=== PATIENT | male | born 1940 | race Caucasian/White ===

== ENCOUNTER → 2016-11-03 | Outpatient (CLI) | payer MEDICARE, MEDICAID ==
[~2016-11-03] MED LIST: ACIPHEX20 MG PO; CEPHALEXIN500 M1 PO; CETIRIZINE HYDR10 M1 PO; COLACE 100100 MG/CAP PO; COLACE50 MG PO; COUMADIN 1MG1 MG/TAB PO; COUMADIN 77.5 MG/TAB PO; COUMADIN5 M1 PO; DIGOXIN0.25 MG PO; DOXAZOCIN PO; FERROUS SU325 MG/TAB PO; FLOMAX 0.40.4 MG/CAP PO; FOLIC ACID 40400 MCG PO; LANOXIN 0.25M0.25 MG PO; LASIX 40MG TABL40 MG PO; LISINOPRIL10 MG PO; LOPRESSOR 225 MG/TAB PO; LORTAB 10/500 51 TAB PO; LORTAB 7.5/5001 TAB PO; LYRICA50 MG PO; MIRTAZAPINE7.5 MG PO; NEXIUM 20MG20 MG PO; NITROSTAT0.4 MG/TAB SL; NO HOME MEDICATIONS; NORCO 325 MG-101 TAB PO; NORVASC 5MG5 MG/TAB PO; PREVACID 30MG30 MG PO; SENNA8.6 MG PO; TOPROL XL100 MG PO; VESICARE5 MG PO; VITAMIN B 12 PO; VITAMIN B12 PO; VITAMIN C BUFF500 MG PO; VITAMIN C500 MG PO; WARFARIN SODIUM2 MG PO; ZANAFLEX 4MG TAB4 MG PO; ZOCOR80 MG PO; [UNRECOGNIZED DRUG - OTHER] PO
== END ==
LOC: COL.RAD 08:15
DX: Z13.6 Encounter for screening for cardiovascular disorders (principal)

== ENCOUNTER 2018-01-21 15:18 | Inpatient (IN) | payer MEDICARE, MEDICAID ==
[~2018-01-21] VITALS: Ht 177.8 cm; Wt 65.1 kg
[2018-01-21 16:27] LABS: BASO % 0.2 % (0.0-2.0); EOS % 0.1 % (0-4.0); GRAN # 10.4 (1.4-6.5); GRAN % 86.8 % (42.2-75.2); HEMOGLOBIN 11.8 g/dl (13.5-18.0); LYMPH # 0.6 (1.2-3.4); LYMPH % 5.3 % (20.0-51.0); MEAN CELL VOLUME 90 fl (80.0-100.0); MEAN CORPUSCULAR HEMOGLOBIN 30 pg (27.0-31.0); MEAN CORPUSCULAR HGB CONC 33 g/dl (33.0-37.0); MEAN PLATELET VOLUME 8.7 fl (7.4-10.4); MONO # 0.9 (0.1-0.6); MONO % 7.2 % (1.7-9.3); PLATELET COUNT 244 K/mm3 (130-400); RED BLOOD COUNT 3.95 M/mm3 (4.20-5.60); REDCELL DISTRIBUTION WIDTH-CV 13.3 % (11.5-14.5)
[2018-01-21 16:31] LABS: HEMATOCRIT 35.4 % (42.0-52.0)
[2018-01-21 16:36] LABS: ALBUMIN 3.8 gm/dL (3.5-5.0); BILIRUBIN,TOTAL 0.9 mg/dL (0.0-1.0); CALCIUM 9.3 mg/dL (8.4-10.2); CREATININE, serum 1.24 mg/dL (0.66-1.25); POTASSIUM 3.8 mmol/L (3.4-5.0)
[2018-01-21 16:48] LABS: TROPONIN-I 0.043 ng/mL (0.000-0.034)
[2018-01-21 16:51] LABS: COLLECTION METHOD CLEAN CATCH
[2018-01-21 16:52] LABS: INR 8.5 (0.8-3.0); PROTHROMBIN TIME 96.8 SECONDS (9.7-12.8)
[2018-01-21 17:03] LABS: MUCOUS Present /lpf; PH 5 (5-8); SQUAMOUS EPITHELIAL 0-2 /hpf; URINE APPEARANCE Clear; URINE BACTERIA None Seen /hpf; URINE BILIRUBIN Negative (NEGATIVE); URINE BLOOD Negative (NEGATIVE); URINE COLOR Amber; URINE GLUCOSE Negative (NEGATIVE); URINE KETONE Trace (NEGATIVE); URINE LEUKOCYTE ESTERASE Negative (NEGATIVE); URINE NITRATE Negative (NEGATIVE); URINE PROTEIN(semi-quant) 1+ (NEGATIVE); URINE UROBILINOGEN >=4.0 mg/dL (NEGATIVE)
[2018-01-21] MEDS ORDERED: PRILOSEC 20MG20 MG PO (18:02)
[2018-01-21] MEDS ORDERED: ZANTAC 150150 MG PO (18:05)
[2018-01-21 20:26] VITALS: BP 163/53; PULSE 85; TEMP 98.2
[2018-01-22] VITALS (7 sets, daily range): BP systolic 139–155; BP diastolic 42–59; PULSE 73–86; TEMP 98–99.1
[2018-01-22 07:41] LABS: BASO % 0.2 % (0.0-2.0); GRAN # 10.2 (1.4-6.5); GRAN % 88.6 % (42.2-75.2); HEMOGLOBIN 11.6 g/dl (13.5-18.0); LYMPH # 0.5 (1.2-3.4); LYMPH % 4.3 % (20.0-51.0); MEAN CELL VOLUME 90 fl (80.0-100.0); MEAN CORPUSCULAR HEMOGLOBIN 30 pg (27.0-31.0); MEAN CORPUSCULAR HGB CONC 33 g/dl (33.0-37.0); MEAN PLATELET VOLUME 9.2 fl (7.4-10.4); MONO # 0.7 (0.1-0.6); MONO % 6.3 % (1.7-9.3); PLATELET COUNT 248 K/mm3 (130-400); RED BLOOD COUNT 3.87 M/mm3 (4.20-5.60); REDCELL DISTRIBUTION WIDTH-CV 13.5 % (11.5-14.5)
[2018-01-22 07:46] LABS: INR 1.5 (0.8-3.0); PROTHROMBIN TIME 17.2 SECONDS (9.7-12.8)
[2018-01-22 07:48] LABS: ALBUMIN 3.6 gm/dL (3.5-5.0); BILIRUBIN,TOTAL 0.9 mg/dL (0.0-1.0); CALCIUM 8.8 mg/dL (8.4-10.2); CREATININE, serum 0.81 mg/dL (0.66-1.25); POTASSIUM 3.1 mmol/L (3.4-5.0); TOTAL PROTEIN 6.8 gm/dL (6.4-8.2)
[2018-01-23 03:53] VITALS: BP 144/48; PULSE 81; TEMP 97.3
[2018-01-23 07:06] LABS: BASO % 0.2 % (0.0-2.0); EOS % 0.4 % (0-4.0); GRAN # 7.4 (1.4-6.5); GRAN % 86.9 % (42.2-75.2); HEMATOCRIT 32.9 % (42.0-52.0); HEMOGLOBIN 10.6 g/dl (13.5-18.0); LYMPH # 0.5 (1.2-3.4); LYMPH % 5.7 % (20.0-51.0); MEAN CELL VOLUME 92 fl (80.0-100.0); MEAN CORPUSCULAR HEMOGLOBIN 30 pg (27.0-31.0); MEAN CORPUSCULAR HGB CONC 32 g/dl (33.0-37.0); MEAN PLATELET VOLUME 8.9 fl (7.4-10.4); MONO # 0.5 (0.1-0.6); MONO % 6.3 % (1.7-9.3); PLATELET COUNT 207 K/mm3 (130-400); RED BLOOD COUNT 3.57 M/mm3 (4.20-5.60); REDCELL DISTRIBUTION WIDTH-CV 13.4 % (11.5-14.5)
[2018-01-23 07:19] LABS: CALCIUM 8.6 mg/dL (8.4-10.2); CREATININE, serum 0.81 mg/dL (0.66-1.25)
[2018-01-23 07:32] LABS: POTASSIUM 2.9 mmol/L (3.4-5.0)
[2018-01-23 07:57] VITALS: BP 135/51; PULSE 80; TEMP 97.5
[2018-01-23 11:31] VITALS: BP 118/45; PULSE 76; TEMP 98.1
[2018-01-23 15:52] VITALS: BP 129/46; PULSE 92; TEMP 97.7
[2018-01-23 21:43] VITALS: BP 149/48; PULSE 84; TEMP 98.1
[2018-01-24] VITALS (7 sets, daily range): BP systolic 133–158; BP diastolic 46–67; PULSE 81–92; TEMP 97.5–99.1
[2018-01-24 07:28] LABS: HEMATOCRIT 36.1 % (42.0-52.0); HEMOGLOBIN 11.5 g/dl (13.5-18.0); MEAN CELL VOLUME 93 fl (80.0-100.0); MEAN CORPUSCULAR HEMOGLOBIN 30 pg (27.0-31.0); MEAN CORPUSCULAR HGB CONC 32 g/dl (33.0-37.0); MEAN PLATELET VOLUME 9.1 fl (7.4-10.4); PLATELET COUNT 270 K/mm3 (130-400); REDCELL DISTRIBUTION WIDTH-CV 13.6 % (11.5-14.5)
[2018-01-24 07:47] LABS: ALBUMIN 3.4 gm/dL (3.5-5.0); BILIRUBIN,TOTAL 0.7 mg/dL (0.0-1.0); CALCIUM 9.1 mg/dL (8.4-10.2); CREATININE, serum 0.74 mg/dL (0.66-1.25); POTASSIUM 3.7 mmol/L (3.4-5.0); TOTAL PROTEIN 6.8 gm/dL (6.4-8.2)
[2018-01-24 07:52] LABS: BAND 5 % (0-10); LYMPHOCYTE 5 % (20.0-51.0); NEUTROPHILS 87 % (42.0-75.2); PLATELET ESTIMATE NORMAL (NORMAL)
[2018-01-24 07:53] LABS: HYPOCHROMIA 1+
[2018-01-24 08:40] LABS: INR 1.3 (0.8-3.0); PROTHROMBIN TIME 15.3 SECONDS (9.7-12.8)
[2018-01-25 04:36] VITALS: BP 144/59; PULSE 72; TEMP 98.1
[2018-01-25 06:10] LABS: BASO % 0.3 % (0.0-2.0); EOS # 0.2 (0.0-0.7); EOS % 2.3 % (0-4.0); GRAN # 6.1 (1.4-6.5); GRAN % 81.7 % (42.2-75.2); HEMOGLOBIN 10.7 g/dl (13.5-18.0); LYMPH # 0.6 (1.2-3.4); MEAN CELL VOLUME 93 fl (80.0-100.0); MEAN CORPUSCULAR HEMOGLOBIN 30 pg (27.0-31.0); MEAN CORPUSCULAR HGB CONC 32 g/dl (33.0-37.0); MEAN PLATELET VOLUME 9.2 fl (7.4-10.4); MONO # 0.5 (0.1-0.6); MONO % 7.2 % (1.7-9.3); PLATELET COUNT 237 K/mm3 (130-400); REDCELL DISTRIBUTION WIDTH-CV 13.5 % (11.5-14.5)
[2018-01-25 06:12] LABS: HEMATOCRIT 33.6 % (42.0-52.0)
[2018-01-25 06:15] LABS: CALCIUM 8.6 mg/dL (8.4-10.2); CREATININE, serum 0.74 mg/dL (0.66-1.25); POTASSIUM 3.5 mmol/L (3.4-5.0)
[2018-01-25 07:26] VITALS: BP 156/57; PULSE 91; TEMP 98.3
[2018-01-25 09:11] LABS: INR 1.4 (0.8-3.0); PROTHROMBIN TIME 15.5 SECONDS (9.7-12.8)
[2018-01-25 11:08] VITALS: BP 106/59; PULSE 74; TEMP 98.2
[2018-01-25 15:36] VITALS: BP 125/48; PULSE 54; TEMP 97.9
[2018-01-25 19:07] VITALS: BP 155/59; PULSE 85; TEMP 97.7
[2018-01-25 23:08] VITALS: BP 131/47; PULSE 78; TEMP 97.6
[2018-01-26 03:22] VITALS: BP 148/53; PULSE 86; TEMP 97.9
[2018-01-26 07:03] VITALS: BP 142/54; PULSE 91; TEMP 98.3
[2018-01-26 07:59] LABS: BASO % 0.2 % (0.0-2.0); EOS # 0.2 (0.0-0.7); GRAN # 4.8 (1.4-6.5); GRAN % 78.4 % (42.2-75.2); HEMOGLOBIN 11.4 g/dl (13.5-18.0); LYMPH # 0.6 (1.2-3.4); LYMPH % 9.6 % (20.0-51.0); MEAN CELL VOLUME 94 fl (80.0-100.0); MEAN CORPUSCULAR HEMOGLOBIN 30 pg (27.0-31.0); MEAN CORPUSCULAR HGB CONC 32 g/dl (33.0-37.0); MEAN PLATELET VOLUME 8.9 fl (7.4-10.4); MONO # 0.4 (0.1-0.6); MONO % 7.3 % (1.7-9.3); PLATELET COUNT 264 K/mm3 (130-400); RED BLOOD COUNT 3.84 M/mm3 (4.20-5.60); REDCELL DISTRIBUTION WIDTH-CV 13.7 % (11.5-14.5)
[2018-01-26 08:14] LABS: CALCIUM 8.5 mg/dL (8.4-10.2); CREATININE, serum 0.76 mg/dL (0.66-1.25); POTASSIUM 4.2 mmol/L (3.4-5.0)
[2018-01-26 08:26] LABS: INR 1.5 (0.8-3.0); PROTHROMBIN TIME 16.9 SECONDS (9.7-12.8)
[2018-01-26 11:29] VITALS: BP 134/46; PULSE 80; TEMP 98.2
[2018-01-26 11:58] VITALS: BP 134/46; PULSE 80; TEMP 98.2
[2018-01-26] MEDS ORDERED: NORCO 325 MG-101 TAB PO (12:09)
[2018-01-26] MEDS ORDERED: TYLENOL 325MG325 MG PO (12:10)
[2018-01-26] MEDS ORDERED: ZOLOFT 25MG25 MG PO (12:11)
[2018-01-26] MEDS ORDERED: ZOLOFT 50MG50 MG PO (12:11)
[2018-01-26] MEDS ORDERED: DOXYCYCLINE HY100 MG PO (12:17)
== END 2018-01-26 13:47 | DRG 177 ==
LOC: COL.ER 15:18 → ICU 17:23 → MEDICAL 18:22
PROVIDERS: Emergency Medicine; Family Medicine; Hospitalist; Physician Assistant
DX: J15.212 Pneumonia due to Methicillin resistant Staphylococcus aureus (principal); I21.A1 Myocardial infarction type 2; E43 Unspecified severe protein-calorie malnutrition; J44.0 Chronic obstructive pulmonary disease with (acute) lower respiratory infection; Z66 Do not resuscitate; Z68.20 Body mass index [BMI] 20.0-20.9, adult; F17.210 Nicotine dependence, cigarettes, uncomplicated; I25.10 Atherosclerotic heart disease of native coronary artery without angina pectoris; Z95.5 Presence of coronary angioplasty implant and graft; I10 Essential (primary) hypertension; I48.91 Unspecified atrial fibrillation; Z85.46 Personal history of malignant neoplasm of prostate; E86.0 Dehydration; Z95.0 Presence of cardiac pacemaker; F06.31 Mood disorder due to known physiological condition with depressive features
CPT/HCPCS: 99222-AI; 99233-AI; 99239; A4216; J0456; J0696; J1650; J2405; J2543; J3370; J3430; J7030; J7050